=== PATIENT | female | born 1960 | race Caucasian/White ===

== ENCOUNTER → 2023-08-18 | Outpatient (CLI) | payer BC, SELFPAY ==
--- NOTE | 2023-08-18 09:00 | RAD_ITS ---
STUDY: X-RAY - LUMBAR SPINE REASON FOR EXAM: Female, 63 years old. Low back pain. TECHNIQUE: 2 view(s) of the lumbar spine were obtained. COMPARISON: None FINDINGS: Osteopenia. Increased lordosis. No substantial scoliosis. 8 mm of anterolisthesis of L4 on L5. Subtle lucency projected posteriorly at L4-5 which may represent a unilateral spondylolysis. Diffuse lower thoracic and lumbosacral facet sclerosis. Mild intervertebral disc space narrowing diffusely with small osteophytes most marked at T10-11, T11-12, L1-2, L2-3 and L5-S1. Phleboliths. RAD/Lumbar Spine 2 or 3 Views IMPRESSION: Osteopenia with diffuse mild lower thoracic and lumbosacral spondylosis. 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 Electronically Signed: Jean Paul Bills MD at 10:01 EST ,
--- NOTE | 2023-08-18 09:00 | RAD_ITS ---
STUDY: X-RAY - CERVICAL SPINE REASON FOR EXAM: Female, 63 years old. Neck pain. TECHNIQUE: 4 view(s) of the cervical spine were obtained. COMPARISON: None FINDINGS: Osteopenia. Normal anterior atlantoaxial articulation. Normal odontoid process. Normal cervical lordosis. Moderate diffuse uncovertebral and facet sclerosis. Moderate intervertebral disc space narrowing at C3-4, C4-5, C5-6 and C6-7. Small osteophytes most marked at C3-4 and C5-6. Normal soft tissues. RAD/Cerv Spine 2 or 3 Views IMPRESSION: Osteopenia with diffuse moderate cervical spondylosis from C3-4 to C6-7. Electronically Signed: Jean Paul Bills MD at 10:08 [facility] ,
--- NOTE | 2023-08-18 09:00 | RAD_ITS ---
STUDY: X-RAY - LEFT KNEE REASON FOR EXAM: Female, 63 years old. Bilateral knee pain. TECHNIQUE: 4 view(s) of the knee. COMPARISON: None. FINDINGS: Osteopenia. Slight medial subluxation of the distal femur in relation to the proximal tibia. Severe arthrosis of the medial compartment with near complete loss of articular cartilage, subchondral cyst formation, subchondral sclerosis and osteophytes. Moderate arthrosis of the lateral femorotibial compartment with small osteophytes. Lateral tilt and subluxation of the patella with moderate arthrosis of the lateral patellofemoral compartment with small osteophytes. Small suprapatellar joint effusion. RAD/Knee 3 Views IMPRESSION: Osteopenia with tricompartmental arthrosis as described. Suprapatellar joint effusion. Electronically Signed: Jean Paul Bills MD at 9:59 EST ,
--- NOTE | 2023-08-18 09:00 | RAD_ITS ---
STUDY: X-RAY - RIGHT KNEE REASON FOR EXAM: Female, 63 years old. Bilateral knee pain. TECHNIQUE: 4 view(s) of the knee. COMPARISON: None. FINDINGS: Osteopenia. Mild narrowing of the medial femorotibial compartment without osteophytes. Normal lateral femorotibial compartment. Lateral tilt and subluxation of the patella with moderate thinning of the lateral patellofemoral compartment. Small suprapatellar joint effusion. RAD/Knee 3 Views IMPRESSION: Osteopenia with medial and lateral patellofemoral compartmental arthrosis and small joint effusion. Electronically Signed: Jean Paul Bills MD at 10:05 EST ,
[2023-08-18 09:23] LABS: Hematocrit 45.4 % (37-47); Hemoglobin 15.1 g/dL (12.0-15.0); Mean Corp Hgb Conc 33.3 g/dL (32-36); Mean Corpuscular Hgb 30.3 pg (27.0-32.0); Mean Platelet Vol. 8.9 fl (6.2-12.0); Platelet Count 388 K/mm3 (150-450); RBC Distribution Width CV 13.2 % (11.6-14.6); RBC Distribution Width SD 43.9 fl (35.1-43.9); Red Blood Count 4.99 M/mm3 (4.2-5.4); White Blood Count 5.3 K/mm3 (4.4-11.0)
[2023-08-18 10:18] LABS: Vitamin B12 354 pg/mL (211-911)
[2023-08-18 11:05] LABS: AST(SGOT) 17 U/L (15-37); Alanine Aminotransfer ALT/SGPT 27 U/L (13-56); Albumin, Serum 3.7 g/dL (3.2-5.0); Alkaline Phosphatase 107 U/L (45-117); Anion Gap 7 (5-15); BUN 9 mg/dL (7-18); BUN/Creat Ratio 11.8 RATIO (10-20); Chloride 105 mmol/L (98-107); Creatinine, Serum 0.76 mg/dL (0.55-1.02); EST Glomerular Filtration Rate 82 mL/min (>60); Est Glom Filt Rate - Afr Amer 99 mL/min (>60); Globulin 3.7 g/dL (2.2-4.2); Glucose 116 mg/dL (74-106); Potassium 3.8 mmol/L (3.5-5.1); Protein, Total 7.4 g/dL (6.4-8.2); Sodium Level 137 mmol/L (136-145); T4 Free Direct 0.99 ng/dL (0.76-1.46); Thyroid Stim Hormone (TSH) 1.19 uIU/mL (0.358-3.74)
[2023-08-21 06:08] LABS: Free Kappa Light Chains 19.1 mg/L (3.3-19.4); Free Lambda Light Chains 15.4 mg/L (5.7-26.3); Vitamin B1, Thiamine 105.8 nmol/L (66.5-200.0)
== END | disposition home or self-care (01) ==
PROVIDERS: PCP Nurse Practitioner Family; Referring Provider Psychiatry & Neurology Neurology; Visit Provider Psychiatry & Neurology Neurology
DX: M54.2 Cervicalgia (principal); M54.50 Low back pain, unspecified; M25.561 Pain in right knee; M25.562 Pain in left knee; E03.9 Hypothyroidism, unspecified; G62.9 Polyneuropathy, unspecified
CPT/HCPCS: 36415; 72040; 72100; 73562; 80053; 82607; 82746; 83883; 84425; 84439; 84443; 85027

== ENCOUNTER → 2023-08-24 | Outpatient (CLI) | payer BC, SELFPAY ==
--- NOTE | 2023-08-24 11:32 | NEURO ---
NCS and/or EMG Patient Report Ordering Doctor: Trever Marie DATE OF SERVICE: 08/24/23 Clinical Summary: 63 year old female patient presenting with symptoms of numbness and tingling in her fingers bilaterally as well as pain in the elbows. She also has a history of neck pain. This EMG/NCS was performed to evaluate for right/left carpal tunnel syndrome and cervical radiculopathy. Nerve Conduction Studies Summary: The median-D2 SNAP distal latency was prolonged bilaterally. Needle Examination Summary: Needle examination of select muscles of the bilateral upper extremities was normal. Impression: There is electrodiagnostic evidence of the following - 1) Mild, bilateral median mononeuropathies at the wrists (carpal tunnel syndrome), with sensory fiber demyelination There is no electrodiagnostic evidence of a right/left cervical radiculopathy. Multi Select Codes Neurology Neurology Interp Codes: 93304-75 Musc test done w/n test comp (interp) (2) and 43481-11 Nrv cndj test 13/> studies (interp)
== END | disposition home or self-care (01) ==
LOC: PSN 10:14
PROVIDERS: PCP Nurse Practitioner Family; Referring Provider Psychiatry & Neurology Neurology; Visit Provider Psychiatry & Neurology Neurology
DX: G56.03 Carpal tunnel syndrome, bilateral upper limbs (principal); M54.2 Cervicalgia
CPT/HCPCS: 95886; 95913

== ENCOUNTER → 2023-09-08 | Outpatient (CLI) | payer BC, SELFPAY ==
--- NOTE | 2023-09-08 13:39 | NEURO ---
NCS and/or EMG Patient Report Ordering Doctor: Trever Marie DATE OF SERVICE: 09/08/23 Isela presents for electrodiagnostic testing of the upper limbs. She reports restlessness in both legs, which is intermittent. She denies numbness or tingling in the legs. She reports intermittent lower back pain. Electrodiagnostic findings: Peroneal motor nerve demonstrates normal distal latency, amplitude and conduction velocity bilaterally. Normal tibial motor response bilaterally. Normal tibial and peroneal F?waves. Normal H?reflex bilaterally. Sensory responses are within normal limits. Needle EMG testing was performed in the lower limbs. All muscles tested showed no evidence of denervation with normal motor unit action potentials. Electrodiagnostic impression: This is a normal electrodiagnostic study of the lower limbs. There is no electrodiagnostic evidence for peripheral neuropathy or lumbosacral radiculopathy. Multi Select Codes Neurology Neurology Interp Codes: 53399-38 Musc test done w/n test comp (interp) (2) and 79760-30 Nrv cndj test 9-10 studies (interp)
== END | disposition home or self-care (01) ==
LOC: PSN 08:59
PROVIDERS: PCP Nurse Practitioner Family; Referring Provider Psychiatry & Neurology Neurology; Visit Provider Psychiatry & Neurology Neurology
DX: R20.0 Anesthesia of skin (principal); R20.2 Paresthesia of skin; G62.9 Polyneuropathy, unspecified
CPT/HCPCS: 95886; 95911

== ENCOUNTER → 2023-12-06 | Outpatient (CLI) | payer BC, SELFPAY ==
[2023-12-06 17:56] LABS: Hemoglobin A1c 5.7 % (3.8-5.6)
[2023-12-09 13:08] LABS: Vitamin D 1,25-Dihydroxy 66.9 pg/mL (24.8-81.5)
== END | disposition home or self-care (01) ==
PROVIDERS: PCP Nurse Practitioner Family; Referring Provider Psychiatry & Neurology Neurology; Visit Provider Psychiatry & Neurology Neurology
DX: M85.80 Other specified disorders of bone density and structure, unspecified site (principal); R73.9 Hyperglycemia, unspecified
CPT/HCPCS: 36415; 82652; 83036

== ENCOUNTER 2023-12-22 16:36 | Emergency (ER) | payer BC, SELFPAY ==
[2023-12-22 16:37] VITALS: BP 141/88; PULSE 104; RESP 18; TEMP 36.6; O2SAT 98; BMI 35.8
--- NOTE | 2023-12-22 17:01 | EX.ED.DYSGE1 ---
HPI History of Present Illness Chief Complaint: Palpitations Informant: patient Onset/Context/Timing Onset: Weeks (2) Context: Gradual Onset Timing: Continuous (For the past 3 days) Quality: Fatigue, fogginess Location: Generalized Worsened by: Nothing Relieved by: Nothing Narrative Narrative: Patient presents with palpitations that have been getting progressively worse over the past 2 weeks. Patient states that they were intermittent initially but have been constant over the past 3 days. Patient states she feels fatigued and foggy. Patient states she has had paroxysmal atrial fibrillation in the past and is concerned that she is going back into that. Patient states she was recently started on carbidopa by a neurologist for restless leg syndrome. Patient states that she has not had a dose for the past 2 days. Patient states nothing makes her symptoms better nothing makes it worse. [facility] Medical History (Updated 12/22/23 @ 19:[address] Nigel Nunez, DO) Paroxysmal atrial fibrillation Restless leg syndrome Home Medications aspirin 325 mg tablet,delayed release 325 mg PO DAILY 07/26/23 [History Last Taken Unknown] atorvastatin 10 mg tablet 10 mg PO DAILY 07/26/23 [History Last Taken Unknown] cinnamon bark 500 mg capsule (Cinnamon) 500 mg PO DAILY 07/26/23 [History Last Taken Unknown] coenzyme Q10 30 mg capsule 30 mg PO DAILY 07/26/23 [History Last Taken Unknown] diltiazem HCl 300 mg capsule,24 hr,extended release 300 mg PO DAILY 07/26/23 [History Last Taken Unknown] hydrochlorothiazide 25 mg tablet 25 mg PO DAILY 07/26/23 [History Last Taken Unknown] hydroxyzine HCl 10 mg tablet 10 mg PO TID PRN 07/26/23 [History Last Taken Unknown] levothyroxine 25 mcg capsule 25 mcg PO DAILY 07/26/23 [History Last Taken Unknown] loratadine 10 mg disintegrating tablet (Allergy Relief (loratadine)) 10 mg PO DAILY 07/26/23 [History Last Taken Unknown] multivitamin 1 tab PO DAILY 07/26/23 [History Last Taken Unknown] multivitamin with iron (Hair Vitamins tablet) 1 tab PO DAILY 07/26/23 [History Last Taken Unknown] sertraline 100 mg tablet 100 mg PO DAILY 07/26/23 [History Last Taken Unknown] turmeric root extract 150 mg-bethel root extract 25 mg chewable tablet tab PO 07/26/23 [History Last Taken Unknown] vitamin C 500 mg-multivitamin with minerals chewable tablet (Emergen-C) 1 tab PO BID 07/26/23 [History Last Taken Unknown] baclofen 10 mg tablet 10 mg PO TID PRN muscle pain/muscle spasm #90 tabs 12/06/23 [Rx Last Taken Unknown] meloxicam 7.5 mg tablet 7.5 mg PO BID PRN pain #60 tabs 12/06/23 [Rx Last Taken Unknown] 3 mL syringe with 25-gauge 1 inch needle #1 ea 12/20/23 [Rx Last Taken Unknown] B12 1,000 mcg IM MONTHLY #1 mL 12/20/23 [Rx Last Taken Unknown] ropinirole 2 mg tablet 2 mg .Route .COMPLEX #60 tabs 12/20/23 [Rx Last Taken Unknown] Allergy/AdvReac Type Severity Reaction Status Date / Time iodine Allergy Severe Anaphylaxis Verified 12/06/23 13:18 Penicillins Allergy Severe Rash Verified 12/06/23 13:18 shellfish derived Allergy Severe Anaphylaxis Verified 12/06/23 13:18 clarithromycin [From Biaxin] AdvReac Intermediate Upset Verified 12/06/23 13:18 Stomach Surgical History (Updated 12/22/23 @ 17:[address] Nigel Nunez, ) History of section History of repair of anterior cruciate ligament of left knee Social History (Updated 12/22/23 @ 17:[address] Nigel Nunez, ) Smoking Status: Current every day smoker tobacco type: cigarettes ROS ROS ED Constitutional Constitutional ED: Reports sweats; Denies chills or fever(s) Eyes Eyes: Denies blurry vision or change in vision ENT ENT ED: Denies rhinorrhea or sore throat Cardiovascular Cardiovascular: Reports palpitations; Denies chest pain Respiratory/Chest Respiratory/Chest: Denies cough or dyspnea Gastrointestinal Gastrointestinal: Reports nausea; Denies vomiting Genitourinary Genitourinary ED: Denies dysuria or hematuria Musculoskeletal Musculoskeletal: Reports back pain and neck pain Integumentary Denies abscess or rash Neurologic Neurologic: Reports headache(s); Denies weakness Allergic/Immunologic Allergic/Immunologic ED: Denies mouth swelling or urticaria EXAM Physical Exam Const Vital Signs: 12/22/23 16:37 12/22/23 17:00 12/22/23 17:04 Temperature 97.8 F Temperature Source Temporal Pulse Rate 104 H 89 Respiratory Rate 18 18 Respiratory Effort Normal Non-Labored Blood Pressure 141/88 H 141/90 H Blood Pressure Mean 105 107 Pulse Ox 98 95 Oxygen Delivery Method Room Air Room Air 12/22/23 19:07 Temperature Temperature Source Pulse Rate 81 Respiratory Rate 16 Respiratory Effort Blood Pressure 119/86 H Blood Pressure Mean 97 Pulse Ox 96 Oxygen Delivery Method Room Air Positive well nourished and well developed General Appearance ED: well developed HEENT Reports TM's clear and moist mucous membranes Tympanic Membrane ED: Yes TM's clear bilateral Neck supple and no JVD Resp normal respiratory effort and clear to auscultation bilaterally Cardio regular rate and regular rhythm GI non-tender and non-distended Palpation: soft Neuro oriented x3, CN's II-XII intact bilaterally and no sensory deficits noted Sensorium / Orientation: alert Psych mental status grossly normal MDM MDM MDM Narrative Medical decision making narrative: Differential diagnosis includes cardiac dysrhythmia, cardiac ischemia, electrolyte abnormality, urinary tract infection, and pneumonia. EKG will be obtained to assess for cardiac dysrhythmia and cardiac ischemia. Chest x-ray will be obtained to assess for pneumonia and cardiomegaly. CBC will be obtained to assess for leukocytosis and anemia. Basic metabolic profile will be obtained to assess for electrolyte abnormality and renal function. Urinalysis will be obtained to assess for urinary tract infection. High-sensitivity troponin will be obtained to assess for cardiac ischemia. Lab Data Attestation: I reviewed the patient's lab results. Lab results narrative: CBC was reviewed and was within normal limits. Basic metabolic profile was reviewed. Potassium was low at 3.0. The remainder is within normal limits. High-sensitivity troponin was reviewed and was normal at 7. Urinalysis was reviewed. There is no evidence of urinary tract infection or hematuria. Labs: Laboratory Results - last 24 hr 12/22/23 12/22/23 17:10 17:15 WBC 8.4 RBC 4.94 Hgb 14.9 Hct 44.2 MCV 89.5 MCH 30.2 MCHC 33.7 RDW Std Deviation 42.8 RDW Coeff of Roro 13.2 Plt Count 371 MPV 8.8 Immature Gran % (Auto) 0.400 Neut % (Auto) 64.7 Lymph % (Auto) 25.1 [place] % (Auto) 5.7 Eos % (Auto) 3.1 Baso % (Auto) 1.0 Absolute Neuts (auto) 5.4 Absolute Lymphs (auto) 2.10 Nucleated RBC % 0 Sodium 140 Potassium 3.0 L Chloride 106 Carbon Dioxide 26.0 Anion Gap 8 BUN 8 Creatinine 0.68 Estim Creat Clear Calc 88.81 Est GFR (MDRD) Af Amer 113 Est GFR (MDRD) Non-Af 93 BUN/Creatinine Ratio 11.8 Glucose 113 H Calcium 9.3 Troponin I High Sens 7 Urine Color Yellow Urine Clarity Clear Urine pH 7.0 Ur Specific [place] 1.005 Urine Protein Negative Urine Glucose (UA) Normal Urine Ketones Negative Urine Occult Blood 10 H Urine Nitrite Negative Urine Bilirubin Negative Urine Urobilinogen Normal Ur Leukocyte Esterase 25 H Urine RBC 0 SEEN Urine WBC 0 SEEN Ur Squamous Epith Cells 0-5 SEEN Urine Bacteria RARE Urine Mucus 0 SEEN Radiography Chest X-Ray - ED: 2 View, Read by ED Physician, Read by Radiologist and No Acute Disease Diagnostic Testing: Clinical Impression(s) from Imaging Studies Chest X-Ray 12/22/23 17:15 IMPRESSION: No radiographic evidence of acute cardiopulmonary disease. Electronically Signed: Long Templeton MD at 18:10 EDT Reading Location ID and State: [facility] / [place] Tel , Service support , [place] and lateral chest x-ray was obtained. There are 2 views. On my independent interpretation, lung long are clear. There is normal cardiac silhouette. Bony thorax is normal. There is no acute process noted. Radiologist also interpreted the x-ray and agrees. EKG Initial EKG: Attestation: I personally reviewed and interpreted this EKG as follows: Interpretation: Sinus Rhythm (96) and Non-Specific ST Changes Comments: EKG was obtained. On my independent interpretation, it showed a normal sinus rhythm with a rate of 96. [place] interval, QRS interval, and QTc intervals were all normal. [place] was normal. There are nonspecific ST-T wave changes. Prior EKG tracings: not available for review Prior: No Prior Treatment and Re-Evaluation :: Patient was advised of her findings. Patient was given a dose of oral and IV potassium. Patient was feeling better on reevaluation. Patient was instructed to follow-up with her primary care physician in 5 to 7 days. Patient was instructed to continue to monitor her blood pressure. Patient was instructed to return if worse in any way. Patient understood and was agreeable with plan. All questions were answered. Discharge Plan Triage Chief Complaint: Palpitations ED Provider: Nigel Nunez Dx/Rx/DC Orders Clinical Impression: Heart palpitations, Hypokalemia Instructions: ED Hypokalemia, ED Palpitations Prescriptions: No Action diltiazem HCl 300 mg capsule,extended release 24 hr 300 mg PO DAILY hydrochlorothiazide 25 mg tablet 25 mg PO DAILY loratadine [Allergy Relief (loratadine)] 10 mg tablet,disintegrating 10 mg PO DAILY sertraline 100 mg tablet 100 mg PO DAILY levothyroxine 25 mcg capsule 25 mcg PO DAILY atorvastatin 10 mg tablet 10 mg PO DAILY hydroxyzine HCl 10 mg tablet 10 mg PO TID PRN aspirin 325 mg tablet,delayed release (DR/EC) 325 mg PO DAILY multivitamin Tablet 1 tab PO DAILY turmeric root-bethel root ext 150-25 mg tablet,chewable PO Emergen-C 500 mg tablet,chewable 1 tab PO BID multivitamin with iron [Hair Vitamins] Tablet 1 tab PO DAILY cinnamon bark [Cinnamon] 500 mg capsule 500 mg PO DAILY coenzyme Q10 30 mg capsule 30 mg PO DAILY meloxicam 7.5 mg tablet 7.5 mg PO BID PRN (Reason: pain) Qty: 60 5RF baclofen 10 mg tablet 10 mg PO TID PRN (Reason: muscle pain/muscle spasm) Qty: 90 5RF ropinirole 2 mg tablet 2 mg .ROUTE .COMPLEX Qty: 60 4RF Rx Instructions: Take 1 tablet orally daily at 3 PM and 1 tablet nightly. B12 1,000 mcg/mL solution 1,000 mcg IM MONTHLY Qty: 1 11RF Rx Instructions: B12 1000 mcg IM monthly to be administered by pharmacist. (DME) 3 mL syringe with 25-gauge 1 inch needle See Rx Instructions .Route .MEDSUPPLY Qty: 1 11RF Rx Instructions: To be used for B12 injections. Primary Care Provider: Suzette Mejía NP Referrals: Suzette Mejía NP, [facility] [Primary Care Provider] - 5-7 Days Disposition Disposition: Home, Self Care
[2023-12-22 17:04] VITALS: BP 141/90; PULSE 89; RESP 18; O2SAT 95
--- NOTE | 2023-12-22 17:11 | EKG12_ITS ---
Test Reason : PALPATATIONS Blood Pressure : / mmHG Vent. Rate : 096 BPM Atrial Rate : 096 BPM P-R Int : 148 ms QRS Dur : 088 ms QT Int : 332 ms P-R-T Axes : 038 093 037 degrees QTc Int : 419 ms Normal sinus rhythm Rightward axis Possible Anterior infarct , age undetermined Abnormal ECG Confirmed by FRANKO HIGGINS, CARL ([id number]), mapping editor LIBRADO CARLOS ([id number]) on 12/24/2023 9:08:13 AM Referred By: Confirmed By:CARL ABDUL MD
--- NOTE | 2023-12-22 17:15 | RAD_ITS ---
INDICATION: Weakness EXAMINATION/TECHNIQUE: X-RAY - XR Chest 2 Views COMPARISON: None. FINDINGS: LINES/DEVICES: None. LUNGS: No consolidation, edema or effusion. No pneumothorax. MEDIASTINUM AND CARDIOVASCULAR STRUCTURES: Cardiac silhouette not enlarged. BONES AND SOFT TISSUES: Unremarkable. RAD/Chest PA and Lateral IMPRESSION: No radiographic evidence of acute cardiopulmonary disease. Electronically Signed: Long Templeton MD at 18:10 EDT ,
[2023-12-22 17:26] LABS: Absolute Neutrophil Count 5.4 X10^3/uL (2.0-7.7); Basophil# 0.08 X10^3/uL; Eosinophil# 0.26 X10^3/uL; Eosinophils% 3.1 % (0-5); Hematocrit 44.2 % (37-47); Hemoglobin 14.9 g/dL (12.0-15.0); Lymphocyte % 25.1 % (19-41); Mean Corp Hgb Conc 33.7 g/dL (32-36); Mean Corpuscular Hgb 30.2 pg (27.0-32.0); Mean Corpuscular Volume 89.5 fL (81-99); Mean Platelet Vol. 8.8 fl (6.2-12.0); Monocyte# 0.48 X10^3/uL; Monocyte% 5.7 % (0-10); NRBC Flagged by Analyzer 0 % (0-5); Neutrophil # 5.41 X10^3/uL (2.7-7.7); Neutrophil % 64.7 % (47-70); Platelet Count 371 K/mm3 (150-450); RBC Distribution Width CV 13.2 % (11.6-14.6); RBC Distribution Width SD 42.8 fl (35.1-43.9); Red Blood Count 4.94 M/mm3 (4.2-5.4); White Blood Count 8.4 K/mm3 (4.4-11.0)
[2023-12-22 17:27] LABS: Mucous, Urine 0 SEEN /hpf (<or=2+); Red Blood Cells-Urine 0 SEEN /hpf (0-5); White Blood Cells 0 SEEN /hpf (0-5)
[2023-12-22 17:37] LABS: Anion Gap 8 (5-15); BUN 8 mg/dL (7-18); BUN/Creat Ratio 11.8 RATIO (10-20); Calcium,Total 9.3 mg/dL (8.5-10.1); Chloride 106 mmol/L (98-107); Creatinine, Serum 0.68 mg/dL (0.55-1.02); EST Glomerular Filtration Rate 93 mL/min (>60); Est Glom Filt Rate - Afr Amer 113 mL/min (>60); Estimated Creatinine Clearance 88.81 ml/min; Glucose 113 mg/dL (74-106); Sodium Level 140 mmol/L (136-145); Troponin-I HS 7 pg/mL (3.0-54.0)
[2023-12-22 17:40] LABS: Color, Urine Yellow (Yellow); Glucose, Dipstick Normal (Normal); Ketone-Dipstick Negative (Negative); Leukocyte Esterase-Dipstick 25 /ul (Negative); Nitrite-Dipstick Negative (Negative); Occult Blood-Urine 10 /ul (Negative); Protein-Dipstick Negative (Negative); Specific Gravity, Urine 1.005 (1.002-1.030); Urine Bilirubin Dipstick Negative (Negative); Urine Clarity Clear (Clear); Urine Urobilinogen Normal (Normal)
[2023-12-22 17:47] LABS: Bacteria RARE /hpf (None Seen); Squamous Epithelial Cells - UA 0-5 SEEN /hpf (5-10)
[2023-12-22] MEDS: Potassium Chloride Oral Tablet 20 MEQ 40 MEQ PO (18:59)
[2023-12-22 19:07] VITALS: BP 119/86; PULSE 81; RESP 16; O2SAT 96
[2023-12-22] MEDS: Potassium Chloride 10mEq/100mL 10 MEQ/100 ML IV.SOLN. 100 MEQ IV BOLUS (19:35)
[2023-12-22 20:48] VITALS: BP 113/84; PULSE 79; RESP 16; TEMP 36.7; O2SAT 97
== END 2023-12-22 20:49 | disposition home or self-care (01) ==
PROVIDERS: Emergency Provider Emergency Medicine; PCP Nurse Practitioner Family; Visit Provider Emergency Medicine
DX: R00.2 Palpitations (principal); E87.6 Hypokalemia; F17.210 Nicotine dependence, cigarettes, uncomplicated; Z79.82 Long term (current) use of aspirin; Z79.899 Other long term (current) drug therapy
CPT/HCPCS: 71046; 80048; 81001; 84484; 85025; 93005; 96365; 99285; J7040; A4216

== ENCOUNTER → 2024-04-07 | Outpatient (CLI) | payer BC, SELFPAY | END | disposition home or self-care (01) | LOC: SL 20:07 | PROVIDERS: PCP Nurse Practitioner Family; Referring Provider Nurse Practitioner Family; Visit Provider Nurse Practitioner Family | DX: G47.10 Hypersomnia, unspecified (principal) | CPT/HCPCS: 95810 ==

== ENCOUNTER → 2024-05-02 | Outpatient (CLI) | payer BC, SELFPAY | END | disposition home or self-care (01) | LOC: SL 10:28 | PROVIDERS: PCP Nurse Practitioner Family; Visit Provider Nurse Practitioner Family | DX: G47.33 Obstructive sleep apnea (adult) (pediatric) (principal) ==